=== PATIENT | male | born 1965 | race Caucasian/White ===

== ENCOUNTER → 2020-07-08 | Outpatient (CLI) | payer OTHER ==
[~2020-07-08] VITALS: Ht 170.2 cm; Wt 46.7 kg
[~2020-07-08] MED LIST: DULERA 200 MCG8.8 GM INH; LOPRESSOR 25 MG25 MG PO; NORCO 7.5-3251 EACH PO; NORVASC 5 MG TAB5 MG PO; PRINIVIL20 MG PO; PROVENTIL HFA6.7 GM INH; SPIRIVA RESPIMAT4 GM INH; THERAGRAN M TAB1 EA PO; VITAMIN D21250 MCG PO
== END ==
LOC: OPSV 10:00
DX: E88.01 Alpha-1-antitrypsin deficiency (principal)
CPT/HCPCS: 96365; J0257

== ENCOUNTER → 2020-07-15 | Outpatient (CLI) | payer OTHER ==
[~2020-07-15] VITALS: Ht 170.2 cm; Wt 46.7 kg
== END ==
LOC: OPSV 10:00
DX: E88.01 Alpha-1-antitrypsin deficiency (principal)
CPT/HCPCS: 96365; J0257

== ENCOUNTER → 2020-07-22 | Outpatient (CLI) | payer OTHER ==
[~2020-07-22] VITALS: Ht 170.2 cm; Wt 46.7 kg
== END ==
LOC: OPSV 09:50
DX: E88.01 Alpha-1-antitrypsin deficiency (principal)
CPT/HCPCS: 96365; J0257

== ENCOUNTER → 2020-07-29 | Outpatient (CLI) | payer OTHER | LOC: OPSV 09:48 | DX: E88.01 Alpha-1-antitrypsin deficiency (principal) | CPT/HCPCS: 96365; J0257 ==

== ENCOUNTER → 2020-08-05 | Outpatient (CLI) | payer OTHER ==
[~2020-08-05] VITALS: Ht 170.2 cm; Wt 46.7 kg
== END ==
LOC: OPSV 09:52
DX: E88.01 Alpha-1-antitrypsin deficiency (principal)
CPT/HCPCS: 96365; J0257

== ENCOUNTER → 2020-08-11 | Outpatient (CLI) | payer OTHER ==
[~2020-08-11] VITALS: Ht 170.2 cm; Wt 46.7 kg
== END ==
LOC: OPSV 09:39
DX: E88.01 Alpha-1-antitrypsin deficiency (principal)
CPT/HCPCS: 96365; J0257

== ENCOUNTER → 2020-08-19 | Outpatient (CLI) | payer OTHER ==
[~2020-08-19] VITALS: Ht 170.2 cm; Wt 46.7 kg
== END ==
LOC: OPSV 09:50
DX: E88.01 Alpha-1-antitrypsin deficiency (principal)
CPT/HCPCS: 96365; J0257

== ENCOUNTER → 2020-09-02 | Outpatient (CLI) | payer OTHER ==
[~2020-09-02] VITALS: Ht 170.2 cm; Wt 46.7 kg
== END ==
LOC: OPSV 08-26 10:00
DX: E88.01 Alpha-1-antitrypsin deficiency (principal)
CPT/HCPCS: 96365; J0257

== ENCOUNTER → 2020-09-09 | Outpatient (CLI) | payer OTHER ==
[~2020-09-09] VITALS: Ht 170.2 cm; Wt 46.7 kg
== END ==
LOC: OPSV 09:54
DX: E88.01 Alpha-1-antitrypsin deficiency (principal)
CPT/HCPCS: 96365; J0257

== ENCOUNTER → 2020-09-16 | Outpatient (CLI) | payer OTHER ==
[~2020-09-16] VITALS: Ht 170.2 cm; Wt 46.7 kg
== END ==
LOC: OPSV 09:43
DX: E88.01 Alpha-1-antitrypsin deficiency (principal)
CPT/HCPCS: 96365; J0257

== ENCOUNTER → 2020-09-23 | Outpatient (CLI) | payer OTHER ==
[~2020-09-23] VITALS: Ht 170.2 cm; Wt 46.7 kg
== END ==
LOC: OPSV 09:50
DX: E88.01 Alpha-1-antitrypsin deficiency (principal)
CPT/HCPCS: 96365; J0257

== ENCOUNTER → 2020-09-30 | Outpatient (CLI) | payer OTHER ==
[~2020-09-30] VITALS: Ht 170.2 cm; Wt 46.7 kg
== END ==
LOC: OPSV 09:15
DX: E88.01 Alpha-1-antitrypsin deficiency (principal)
CPT/HCPCS: 96365; J0257

== ENCOUNTER → 2020-10-07 | Outpatient (CLI) | payer OTHER | LOC: OPSV 09:51 | DX: E88.01 Alpha-1-antitrypsin deficiency (principal) | CPT/HCPCS: 96365; J0257 ==

== ENCOUNTER → 2020-10-14 | Outpatient (CLI) | payer OTHER ==
[~2020-10-14] VITALS: Ht 170.2 cm; Wt 46.7 kg
== END ==
LOC: OPSV 10:00
DX: E88.01 Alpha-1-antitrypsin deficiency (principal)
CPT/HCPCS: 96365; J0257

== ENCOUNTER → 2020-10-21 | Outpatient (CLI) | payer OTHER ==
[~2020-10-21] VITALS: Ht 170.2 cm; Wt 46.7 kg
== END ==
LOC: OPSV 09:53
DX: E88.01 Alpha-1-antitrypsin deficiency (principal)
CPT/HCPCS: 96365; J0257

== ENCOUNTER → 2020-10-28 | Outpatient (CLI) | payer OTHER ==
[~2020-10-28] VITALS: Ht 170.2 cm; Wt 46.7 kg
== END ==
LOC: OPSV 09:51
DX: E88.01 Alpha-1-antitrypsin deficiency (principal)
CPT/HCPCS: 96365; J0257

== ENCOUNTER → 2020-11-04 | Outpatient (CLI) | payer OTHER ==
[~2020-11-04] VITALS: Ht 157.5 cm; Wt 46.7 kg
== END ==
LOC: OPSV 09:43
DX: E88.01 Alpha-1-antitrypsin deficiency (principal)
CPT/HCPCS: 96365; J0257

== ENCOUNTER → 2020-11-11 | Outpatient (CLI) | payer OTHER ==
[~2020-11-11] VITALS: Ht 170.2 cm; Wt 46.7 kg
== END ==
LOC: OPSV 10:00
DX: E88.01 Alpha-1-antitrypsin deficiency (principal)
CPT/HCPCS: 96365; J0257

== ENCOUNTER → 2020-11-25 | Outpatient (CLI) | payer OTHER ==
[~2020-11-25] VITALS: Ht 170.2 cm; Wt 46.7 kg
== END ==
LOC: OPSV 09:53
DX: E88.01 Alpha-1-antitrypsin deficiency (principal)
CPT/HCPCS: 96365; J0257

== ENCOUNTER → 2020-12-02 | Outpatient (CLI) | payer OTHER ==
[~2020-12-02] VITALS: Ht 170.2 cm; Wt 46.7 kg
== END ==
LOC: OPSV 09:48
DX: E88.01 Alpha-1-antitrypsin deficiency (principal)
CPT/HCPCS: 96365; J0257

== ENCOUNTER → 2020-12-09 | Outpatient (CLI) | payer OTHER ==
[~2020-12-09] VITALS: Ht 170.2 cm; Wt 46.7 kg
== END ==
LOC: OPSV 09:58
DX: E88.01 Alpha-1-antitrypsin deficiency (principal)
CPT/HCPCS: 96365; J0257

== ENCOUNTER → 2020-12-16 | Outpatient (CLI) | payer OTHER ==
[~2020-12-16] VITALS: Ht 170.2 cm; Wt 46.7 kg
== END ==
LOC: OPSV 10:00
DX: E88.01 Alpha-1-antitrypsin deficiency (principal)
CPT/HCPCS: 96365; J0257

== ENCOUNTER → 2020-12-23 | Outpatient (CLI) | payer OTHER ==
[~2020-12-23] VITALS: Ht 162.6 cm; Wt 46.7 kg
== END ==
LOC: OPSV 09:45
DX: E88.01 Alpha-1-antitrypsin deficiency (principal)
CPT/HCPCS: 96365; J0257

== ENCOUNTER → 2020-12-30 | Outpatient (CLI) | payer OTHER ==
[~2020-12-30] VITALS: Ht 170.2 cm; Wt 46.7 kg
== END ==
LOC: OPSV 10:00
DX: E88.01 Alpha-1-antitrypsin deficiency (principal)
CPT/HCPCS: 96365; J0257

== ENCOUNTER → 2021-01-06 | Outpatient (CLI) | payer OTHER ==
[~2021-01-06] VITALS: Ht 170.2 cm; Wt 46.7 kg
== END ==
LOC: OPSV 09:48
DX: E88.01 Alpha-1-antitrypsin deficiency (principal)
CPT/HCPCS: 96365; J0257

== ENCOUNTER → 2021-01-20 | Outpatient (CLI) | payer OTHER ==
[~2021-01-20] VITALS: Ht 162.6 cm; Wt 46.7 kg
== END ==
LOC: OPSV 09:44
DX: E88.01 Alpha-1-antitrypsin deficiency (principal)
CPT/HCPCS: 96365; J0257

== ENCOUNTER → 2021-01-27 | Outpatient (CLI) | payer OTHER ==
[~2021-01-27] VITALS: Ht 170.2 cm; Wt 46.7 kg
== END ==
LOC: OPSV 09:45
DX: E88.01 Alpha-1-antitrypsin deficiency (principal)
CPT/HCPCS: 96365; J0257

== ENCOUNTER → 2021-02-03 | Outpatient (CLI) | payer OTHER ==
[~2021-02-03] VITALS: Ht 170.2 cm; Wt 46.7 kg
== END ==
LOC: OPSV 09:59
DX: E88.01 Alpha-1-antitrypsin deficiency (principal)
CPT/HCPCS: 96365; J0257

== ENCOUNTER → 2021-02-10 | Outpatient (CLI) | payer OTHER ==
[~2021-02-10] VITALS: Ht 170.2 cm; Wt 46.7 kg
== END ==
LOC: OPSV 09:50
DX: E88.01 Alpha-1-antitrypsin deficiency (principal)
CPT/HCPCS: 96365; J0257

== ENCOUNTER → 2021-02-17 | Outpatient (CLI) | payer OTHER ==
[~2021-02-17] VITALS: Ht 170.2 cm; Wt 46.7 kg
== END ==
LOC: OPSV 09:47
DX: E88.01 Alpha-1-antitrypsin deficiency (principal)
CPT/HCPCS: 96365; J0257

== ENCOUNTER → 2021-02-24 | Outpatient (CLI) | payer OTHER ==
[~2021-02-24] VITALS: Ht 170.2 cm; Wt 46.7 kg
== END ==
LOC: OPSV 10:00
DX: E88.01 Alpha-1-antitrypsin deficiency (principal)
CPT/HCPCS: 96365; J0257

== ENCOUNTER → 2021-03-03 | Outpatient (CLI) | payer OTHER ==
[~2021-03-03] VITALS: Ht 170.2 cm; Wt 46.7 kg
== END ==
LOC: OPSV 09:53
DX: E88.01 Alpha-1-antitrypsin deficiency (principal)
CPT/HCPCS: 96365; J0257

== ENCOUNTER → 2021-03-10 | Outpatient (CLI) | payer OTHER | LOC: OPSV 09:54 | DX: E88.01 Alpha-1-antitrypsin deficiency (principal) | CPT/HCPCS: 96365; J0257 ==

== ENCOUNTER → 2021-03-17 | Outpatient (CLI) | payer OTHER | LOC: OPSV 09:49 | DX: E88.01 Alpha-1-antitrypsin deficiency (principal) | CPT/HCPCS: 96365; J0257 ==

== ENCOUNTER → 2021-03-24 | Outpatient (CLI) | payer OTHER ==
[~2021-03-24] VITALS: Ht 170.2 cm; Wt 46.7 kg
== END ==
LOC: OPSV 09:56
DX: E88.01 Alpha-1-antitrypsin deficiency (principal)
CPT/HCPCS: 96365; J0257

== ENCOUNTER → 2021-03-31 | Outpatient (CLI) | payer OTHER ==
[~2021-03-31] VITALS: Ht 170.2 cm; Wt 46.7 kg
== END ==
LOC: OPSV 09:54
DX: E88.01 Alpha-1-antitrypsin deficiency (principal)
CPT/HCPCS: 96365; J0257

== ENCOUNTER → 2021-04-07 | Outpatient (CLI) | payer OTHER ==
[~2021-04-07] VITALS: Ht 170.2 cm; Wt 46.7 kg
== END ==
LOC: OPSV 09:56
DX: E88.01 Alpha-1-antitrypsin deficiency (principal)
CPT/HCPCS: 96365; J0257

== ENCOUNTER → 2021-04-14 | Outpatient (CLI) | payer OTHER ==
[~2021-04-14] VITALS: Ht 170.2 cm; Wt 46.7 kg
== END ==
LOC: OPSV 09:48
DX: E88.01 Alpha-1-antitrypsin deficiency (principal)
CPT/HCPCS: 96365; J0257

== ENCOUNTER → 2021-04-21 | Outpatient (CLI) | payer OTHER ==
[~2021-04-21] VITALS: Ht 170.2 cm; Wt 46.7 kg
== END ==
LOC: OPSV 09:47
DX: E88.01 Alpha-1-antitrypsin deficiency (principal)
CPT/HCPCS: 96365; J0257

== ENCOUNTER → 2021-04-28 | Outpatient (CLI) | payer OTHER ==
[~2021-04-28] VITALS: Ht 170.2 cm; Wt 46.7 kg
== END ==
LOC: OPSV 09:51
DX: E88.01 Alpha-1-antitrypsin deficiency (principal); Z53.29 Procedure and treatment not carried out because of patient's decision for other reasons
CPT/HCPCS: 96365; J0257

== ENCOUNTER → 2021-05-05 | Outpatient (CLI) | payer OTHER | LOC: OPSV 10:00 | DX: E88.01 Alpha-1-antitrypsin deficiency (principal) | CPT/HCPCS: 96365; J0257 ==

== ENCOUNTER → 2021-05-19 | Outpatient (CLI) | payer OTHER ==
[~2021-05-19] VITALS: Ht 170.2 cm; Wt 46.7 kg
== END ==
LOC: OPSV 09:58
DX: E88.01 Alpha-1-antitrypsin deficiency (principal)
CPT/HCPCS: 96365; J0257

== ENCOUNTER → 2021-05-26 | Outpatient (CLI) | payer OTHER ==
[~2021-05-26] VITALS: Ht 170.2 cm; Wt 46.7 kg
== END ==
LOC: OPSV 10:00
DX: E88.01 Alpha-1-antitrypsin deficiency (principal)
CPT/HCPCS: 96365; J0257

== ENCOUNTER → 2021-06-02 | Outpatient (CLI) | payer OTHER ==
[~2021-06-02] VITALS: Ht 170.2 cm; Wt 46.7 kg
== END ==
LOC: OPSV 09:59
DX: E88.01 Alpha-1-antitrypsin deficiency (principal)
CPT/HCPCS: 96365; J0257

== ENCOUNTER → 2021-06-09 | Outpatient (CLI) | payer OTHER ==
[~2021-06-09] VITALS: Ht 170.2 cm; Wt 46.7 kg
== END ==
LOC: OPSV 10:00
DX: E88.01 Alpha-1-antitrypsin deficiency (principal)
CPT/HCPCS: 96365; J0257

== ENCOUNTER → 2021-06-16 | Outpatient (CLI) | payer OTHER ==
[~2021-06-16] VITALS: Ht 170.2 cm; Wt 46.7 kg
== END ==
LOC: OPSV 09:49
DX: E88.01 Alpha-1-antitrypsin deficiency (principal)
CPT/HCPCS: 96365; J0257

== ENCOUNTER → 2021-06-23 | Outpatient (CLI) | payer OTHER ==
[~2021-06-23] VITALS: Ht 170.2 cm; Wt 46.7 kg
== END ==
LOC: OPSV 09:45
DX: E88.01 Alpha-1-antitrypsin deficiency (principal)
CPT/HCPCS: 96365; J0257

== ENCOUNTER → 2021-06-30 | Outpatient (CLI) | payer OTHER ==
[~2021-06-30] VITALS: Ht 170.2 cm; Wt 46.7 kg
== END ==
LOC: OPSV 10:00
DX: E88.01 Alpha-1-antitrypsin deficiency (principal)
CPT/HCPCS: 96365; J0257

== ENCOUNTER → 2021-07-07 | Outpatient (CLI) | payer OTHER ==
[~2021-07-07] VITALS: Ht 170.2 cm; Wt 46.7 kg
== END ==
LOC: OPSV 09:57
DX: E88.01 Alpha-1-antitrypsin deficiency (principal)
CPT/HCPCS: 96365; J0257

== ENCOUNTER → 2021-07-14 | Outpatient (CLI) | payer OTHER ==
[~2021-07-14] VITALS: Ht 170.2 cm; Wt 46.7 kg
== END ==
LOC: OPSV 09:53
DX: E88.01 Alpha-1-antitrypsin deficiency (principal)
CPT/HCPCS: 96365; J0257

== ENCOUNTER → 2021-07-21 | Outpatient (CLI) | payer OTHER ==
[~2021-07-21] VITALS: Ht 170.2 cm; Wt 46.7 kg
== END ==
LOC: OPSV 09:51
DX: E88.01 Alpha-1-antitrypsin deficiency (principal)
CPT/HCPCS: 96365; J0257

== ENCOUNTER → 2021-07-28 | Outpatient (CLI) | payer OTHER ==
[~2021-07-28] VITALS: Ht 170.2 cm; Wt 46.7 kg
== END ==
LOC: OPSV 10:00
DX: E88.01 Alpha-1-antitrypsin deficiency (principal)
CPT/HCPCS: 96365; J0257

== ENCOUNTER → 2021-08-04 | Outpatient (CLI) | payer OTHER ==
[~2021-08-04] VITALS: Ht 170.2 cm; Wt 46.7 kg
== END ==
LOC: OPSV 10:00
DX: E88.01 Alpha-1-antitrypsin deficiency (principal)
CPT/HCPCS: 96365; J0257

== ENCOUNTER → 2021-08-11 | Outpatient (CLI) | payer OTHER ==
[~2021-08-11] VITALS: Ht 170.2 cm; Wt 46.7 kg
== END ==
LOC: OPSV 09:55
DX: E88.01 Alpha-1-antitrypsin deficiency (principal)
CPT/HCPCS: 96365; J0257

== ENCOUNTER → 2021-08-18 | Outpatient (CLI) | payer OTHER ==
[~2021-08-18] VITALS: Ht 170.2 cm; Wt 46.7 kg
== END ==
LOC: OPSV 09:47
DX: E88.01 Alpha-1-antitrypsin deficiency (principal)
CPT/HCPCS: 96365; J0257

== ENCOUNTER → 2021-08-25 | Outpatient (CLI) | payer OTHER | LOC: OPSV 09:46 | DX: E88.01 Alpha-1-antitrypsin deficiency (principal) | CPT/HCPCS: 96365; J0257 ==

== ENCOUNTER → 2021-09-01 | Outpatient (CLI) | payer OTHER ==
[~2021-09-01] VITALS: Ht 170.2 cm; Wt 46.7 kg
== END ==
LOC: OPSV 09:55
DX: E88.01 Alpha-1-antitrypsin deficiency (principal)
CPT/HCPCS: 96365; J0257

== ENCOUNTER → 2021-09-08 | Outpatient (CLI) | payer OTHER | LOC: OPSV 09:50 | DX: E88.01 Alpha-1-antitrypsin deficiency (principal) | CPT/HCPCS: 96365; J0257 ==

== ENCOUNTER → 2021-09-15 | Outpatient (CLI) | payer OTHER ==
[~2021-09-15] VITALS: Ht 170.2 cm; Wt 46.7 kg
== END ==
LOC: OPSV 09:53
DX: E88.01 Alpha-1-antitrypsin deficiency (principal)
CPT/HCPCS: 96365; J0257

== ENCOUNTER → 2021-10-06 | Outpatient (CLI) | payer OTHER ==
[~2021-10-06] VITALS: Ht 170.2 cm; Wt 46.7 kg
== END ==
LOC: OPSV 10:00
DX: E88.01 Alpha-1-antitrypsin deficiency (principal)
CPT/HCPCS: 96365; J0257

== ENCOUNTER → 2021-10-13 | Outpatient (CLI) | payer OTHER ==
[~2021-10-13] VITALS: Ht 170.2 cm; Wt 46.7 kg
== END ==
LOC: OPSV 10:00
DX: E88.01 Alpha-1-antitrypsin deficiency (principal)
CPT/HCPCS: 96365; J0257

== ENCOUNTER → 2021-11-03 | Outpatient (CLI) | payer OTHER ==
[~2021-11-03] VITALS: Ht 170.2 cm; Wt 47.0 kg
== END ==
LOC: OPSV 09:41
DX: E88.01 Alpha-1-antitrypsin deficiency (principal)
CPT/HCPCS: 96365; J0257

== ENCOUNTER → 2021-11-10 | Outpatient (CLI) | payer OTHER ==
[~2021-11-10] VITALS: Ht 170.2 cm; Wt 46.7 kg
== END ==
LOC: OPSV 09:47
DX: E88.01 Alpha-1-antitrypsin deficiency (principal)
CPT/HCPCS: 96365; J0257

== ENCOUNTER → 2021-11-17 | Outpatient (CLI) | payer OTHER | LOC: OPSV 09:30 | DX: E88.01 Alpha-1-antitrypsin deficiency (principal) | CPT/HCPCS: 96365; J0257 ==

== ENCOUNTER → 2021-11-24 | Outpatient (CLI) | payer OTHER ==
[~2021-11-24] VITALS: Ht 170.2 cm; Wt 46.7 kg
== END ==
LOC: OPSV 10:00
DX: E88.01 Alpha-1-antitrypsin deficiency (principal)
CPT/HCPCS: 96365; J0257

== ENCOUNTER → 2021-12-01 | Outpatient (CLI) | payer OTHER ==
[~2021-12-01] VITALS: Ht 170.2 cm; Wt 46.7 kg
== END ==
LOC: OPSV 10:00
DX: E88.01 Alpha-1-antitrypsin deficiency (principal)
CPT/HCPCS: 96365; J0257

== ENCOUNTER → 2021-12-08 | Outpatient (CLI) | payer OTHER ==
[~2021-12-08] VITALS: Ht 170.2 cm; Wt 46.7 kg
== END ==
LOC: OPSV 10:00
DX: E88.01 Alpha-1-antitrypsin deficiency (principal)
CPT/HCPCS: 96365; J0257

== ENCOUNTER → 2021-12-15 | Outpatient (CLI) | payer OTHER ==
[~2021-12-15] VITALS: Ht 170.2 cm; Wt 46.7 kg
== END ==
LOC: OPSV 08:45
DX: E88.01 Alpha-1-antitrypsin deficiency (principal)
CPT/HCPCS: 96365; J0257

== ENCOUNTER → 2021-12-22 | Outpatient (CLI) | payer OTHER ==
[~2021-12-22] VITALS: Ht 170.2 cm; Wt 46.7 kg
== END ==
LOC: OPSV 10:00
DX: E88.01 Alpha-1-antitrypsin deficiency (principal)
CPT/HCPCS: 96365; J0257

== ENCOUNTER → 2021-12-29 | Outpatient (CLI) | payer OTHER ==
[~2021-12-29] VITALS: Ht 170.2 cm; Wt 46.7 kg
== END ==
LOC: OPSV 10:00
DX: E88.01 Alpha-1-antitrypsin deficiency (principal)
CPT/HCPCS: 96365; J0257

== ENCOUNTER → 2022-01-04 | Outpatient (CLI) | payer OTHER | LOC: HEART 5 15:55 | DX: J44.9 Chronic obstructive pulmonary disease, unspecified (principal) | CPT/HCPCS: 94060; 94729 ==

== ENCOUNTER → 2022-01-04 | Outpatient (CLI) | payer OTHER ==
[~2022-01-04] VITALS: Ht 170.2 cm; Wt 46.7 kg
== END ==
LOC: OPSV 13:59
DX: E88.01 Alpha-1-antitrypsin deficiency (principal)
CPT/HCPCS: 96365; J0257

== ENCOUNTER → 2022-01-13 | Outpatient (CLI) | payer OTHER ==
[~2022-01-13] VITALS: Ht 170.2 cm; Wt 46.7 kg
== END ==
LOC: OPSV 01-12 10:00
DX: E88.01 Alpha-1-antitrypsin deficiency (principal)
CPT/HCPCS: 96365; J0257

== ENCOUNTER → 2022-01-19 | Outpatient (CLI) | payer OTHER ==
[~2022-01-19] VITALS: Ht 170.2 cm; Wt 46.7 kg
== END ==
LOC: OPSV 09:56
DX: E88.01 Alpha-1-antitrypsin deficiency (principal)
CPT/HCPCS: 96365; J0257

== ENCOUNTER → 2022-01-26 | Outpatient (CLI) | payer OTHER | LOC: OPSV 10:00 | DX: E88.01 Alpha-1-antitrypsin deficiency (principal) | CPT/HCPCS: 96365; J0257 ==

== ENCOUNTER → 2022-02-02 | Outpatient (CLI) | payer OTHER ==
[~2022-02-02] VITALS: Ht 170.2 cm; Wt 46.7 kg
== END ==
LOC: OPSV 10:00
DX: E88.01 Alpha-1-antitrypsin deficiency (principal)
CPT/HCPCS: 96365; J0257

== ENCOUNTER → 2022-02-09 | Outpatient (CLI) | payer OTHER ==
[~2022-02-09] VITALS: Ht 170.2 cm; Wt 46.7 kg
== END ==
LOC: OPSV 09:14
DX: E88.01 Alpha-1-antitrypsin deficiency (principal)
CPT/HCPCS: 96365; J0257

== ENCOUNTER → 2022-02-16 | Outpatient (CLI) | payer OTHER | LOC: OPSV 10:00 | DX: E88.01 Alpha-1-antitrypsin deficiency (principal) | CPT/HCPCS: 96365; J0257 ==

== ENCOUNTER → 2022-02-23 | Outpatient (CLI) | payer OTHER ==
[~2022-02-23] VITALS: Ht 170.2 cm; Wt 46.7 kg
== END ==
LOC: OPSV 10:00
DX: E88.01 Alpha-1-antitrypsin deficiency (principal)
CPT/HCPCS: 96365; J0257

== ENCOUNTER → 2022-03-02 | Outpatient (CLI) | payer OTHER ==
[~2022-03-02] VITALS: Ht 170.2 cm; Wt 46.7 kg
== END ==
LOC: OPSV 09:47
DX: E88.01 Alpha-1-antitrypsin deficiency (principal)
CPT/HCPCS: 96365; J0257

== ENCOUNTER → 2022-03-09 | Outpatient (CLI) | payer OTHER | LOC: OPSV 09:09 | DX: E88.01 Alpha-1-antitrypsin deficiency (principal) | CPT/HCPCS: 96365; J0257 ==

== ENCOUNTER → 2022-03-16 | Outpatient (CLI) | payer OTHER ==
[~2022-03-16] VITALS: Ht 170.2 cm; Wt 46.7 kg
== END ==
LOC: OPSV 09:54
DX: E88.01 Alpha-1-antitrypsin deficiency (principal)
CPT/HCPCS: 96365; J0257

== ENCOUNTER → 2022-03-23 | Outpatient (CLI) | payer OTHER ==
[~2022-03-23] VITALS: Ht 170.2 cm; Wt 46.7 kg
== END ==
LOC: OPSV 10:00
DX: E88.01 Alpha-1-antitrypsin deficiency (principal)
CPT/HCPCS: 96365; J0257

== ENCOUNTER → 2022-03-30 | Outpatient (CLI) | payer OTHER ==
[~2022-03-30] VITALS: Ht 170.2 cm; Wt 46.7 kg
== END ==
LOC: OPSV 10:00
DX: E88.01 Alpha-1-antitrypsin deficiency (principal)
CPT/HCPCS: 96365; J0257

== ENCOUNTER → 2022-04-06 | Outpatient (CLI) | payer OTHER ==
[~2022-04-06] VITALS: Ht 170.2 cm; Wt 46.7 kg
== END ==
LOC: OPSV 09:51
DX: E88.01 Alpha-1-antitrypsin deficiency (principal)
CPT/HCPCS: 96365; J0257